=== PATIENT | male | born 1990 | race American Indian/Alaskan Native ===

== ENCOUNTER 2019-08-07 17:25 | Emergency (ER) | payer SELFPAY ==
[2019-08-07 17:37] VITALS: BP 153/97
--- NOTE | 2019-08-07 17:39 | Emergency Department Report ---
Chief Complaint: Dental/Oral Stated Complaint: LFT SIDE TOOTHACHE/PAIN Time Seen by Provider: 08/07/19 17:35 - HPI History of Present Illness: This is a 28-year-old male nontoxic well in appearance with no signs of distress presents to the ED with complaint of left sided dental pain since yesterday. Patient applying oragel without relief. Patient denies any facial swelling. Denies following up with a dentist. Denies any fever, chills, headache, nausea, vomiting, chest pain or SOB. Denies any other complaints. - ROS Review of Systems: Review of Systems: ROS: Stated complaint: left sided dental pain Other details as noted in HPI Comment: All other systems reviewed and negative Constitutional: denies: chills, fever HEENT: left sided dental pain Respiratory: denies: cough, shortness of breath. Cardiovascular: denies: chest pain Gastrointestinal: denies: nausea, vomiting Musculoskeletal: denies: myalgia - Exam Vital Signs: Vital Signs 08/07/19 17:35 Temperature 98.5 F Pulse Rate 99 H Respiratory 18 Rate Blood Pressure 153/97 O2 Sat by Pulse 97 Oximetry Physical Exam: - General Limitations: No Limitations General appearance: alert, in no apparent distress, obese ENT exam: Present: #12, dark dental caries center tooth, TTP, no gingival swelling. No palpated abscess or cyst pockets. Neck exam: Present: normal inspection Respiratory exam: Present: normal lung sounds bilaterally. Absent: respiratory distress, wheezes, rales, rhonchi, stridor Cardiovascular Exam: Present: regular rate, normal rhythm Extremities exam: Present: normal inspection. Absent: pedal edema, calf tenderness Neurological exam: Present: alert, oriented X3 Psychiatric exam: Present: normal affect, normal mood Skin exam: Present: warm, dry, intact, normal color MSE screening note: Focused history and physical exam performed. Due to findings the following was ordered: ED Medical Decision Making - Medical Decision Making This is a 28-year-old male that presents with left sided dental pain since yesterday. Patient is stable and was examined by me. Tooth #12, dark dental caries center tooth, TTP, no gingival swelling, no facial swelling. No signs of cellulitis or abscess. This is a non-emergent complaint. However, patient is in severe pain that is uncontrolled. Start magic mouthwash and tramadol. A handout with emergency dental clinics was provided for follow up. At time of discharge, the patient does not seem toxic or ill in appearance. No acute signs of distress noted. Patient agrees to discharge treatment plan of care. No further questions noted by the patient. ED Disposition for MSE Clinical Impression: Toothache, Dental caries Disposition: TO HOME OR SELFCARE Is pt being admited?: No Condition: Stable Instructions: Dental Caries (ED), Toothache (ED) Prescriptions: Nystas/Diphen/Xyl Visc/Mylanta [Magic Mouthwash] 10 ml MM Q4H PRN #50 ml PRN Reason: Toothache traMADoL [Ultram 50 MG tab] 50 mg PO Q6HR PRN #8 tablet PRN Reason: Pain Referrals: [facility] [Outside] - 3-5 Days [facility] [Outside] - 3-5 Days [facility] [Outside] - 3-5 Days Time of Disposition: 18:08
== END 2019-08-07 18:14 | disposition home or self-care (01) ==
LOC: ED 17:25
DX: K02.9 Dental caries, unspecified (principal)
CPT/HCPCS: 99282